=== PATIENT | male | born 1995 | race Caucasian/White ===

== ENCOUNTER 2017-03-07 02:51 | Emergency (ER) | payer OTHER ==
[~2017-03-07] VITALS: Ht 170.2 cm; Wt 65.8 kg
[2017-03-07 02:51] VITALS: O2SAT 96; Ht 170.2 cm; Wt 65.8 kg
[2017-03-07 05:05] LABS: BLOOD UREA NITROGEN 12 mg/dl (7-18); BUN/CREATININE RATIO 15.4 (10-20); CALCIUM 8.2 mg/dl (8.5-10.1); CARBON DIOXIDE 24 mmol/L (21-32); CHLORIDE 110 mmol/L (98-107); CREATININE 0.76 mg/dl (0.60-1.40); GLUCOSE 100 mg/dl (70-99); POTASSIUM 3.9 mmol/L (3.5-5.1); SODIUM 142 mmol/L (136-145)
--- NOTE | 2017-03-07 07:48 | EMERGENCY ROOM VISIT NOTE ---
History Report prepared by Korey: Gemma Villarreal Under the Supervision of: Dr. Natalie Del Angel D.O. First contact with patient: 04:43 Chief Complaint: ALCOHOL OVERDOSE Stated Complaint: ALCOHOL OVERDOSE Nursing Triage Summary: Pt arrived via [facility] from [facility] at [employer] bus stop. Per EMS, pt found asleep on [employer] bus. No sober friends. No vomiting or signs of trauma. 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 The patient presents to the ED by EMS. He was found asleep on a [employer] bus. He denies having any pain. The history is limited due to the patient's intoxication. 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 Review of Systems Limited due to patient's intoxication. Past Medical & Surgical Unobtainable due to intoxication. Family History No pertinent family history stated. Social History Smoking Status: Never Smoker Alcohol Use: occasionally Current/Historical Medications No Active Prescriptions or Reported Meds Allergies Coded Allergies: No Known Allergies (Unverified , 03/07/17) Physical Exam Vital Signs Date Time Temp Pulse Resp B/P (MAP) Pulse Ox O2 Delivery O2 Flow Rate FiO2 03/07/17 10:10 36.6 88 18 133/79 97 03/07/17 09:45 36.6 88 18 133/79 97 Room Air 03/07/17 08:00 65 18 91/51 96 Room Air 03/07/17 06:31 95/56 03/07/17 06:17 75 03/07/17 06:06 76 18 94 03/07/17 06:01 100/57 03/07/17 05:56 68 16 94 03/07/17 05:53 114/75 03/07/17 05:26 85 92 03/07/17 04:56 95 23 98 03/07/17 04:26 72 16 95 03/07/17 04:21 91 19 96 03/07/17 03:51 97 19 97 03/07/17 03:21 79 21 96 03/07/17 03:01 85 03/07/17 02:57 146/98 10/22/17 02:51 36.5 80 14 146/98 96 Room Air 03/07/17 02:51 96 Room Air Physical Exam GENERAL: alert, well appearing, well nourished, no distress, non-toxic EYE EXAM: normal conjunctiva, PERRL and EOM's grossly intact OROPHARYNX: no exudate, no erythema, lips, buccal mucosa, and tongue normal and mucous membranes are moist NECK: supple, no nuchal rigidity, no adenopathy, non-tender LUNGS: Clear to auscultation. Normal chest wall mechanics, no w/r/r HEART: no murmurs, S1 normal and S2 normal ABDOMEN: abdomen soft, non-tender, normo-active bowel sounds, no masses, no rebound or guarding. BACK: Back is symmetrical on inspection and there is no deformity, no midline tenderness, no CVA tenderness. SKIN: no rashes and no bruising UPPER EXTREMITIES: upper extremities are grossly normal. No evidence of trauma , full range of motion, normal pulses. LOWER EXTREMITIES: No pitting edema. No evidence of trauma, full range of motion, normal pulses. NEURO EXAM: Patient is not cooperative for additional testing. Moves all extremities spontaneously. Medical Decision & Procedures Laboratory Results 03/07/17 03:02 Test 03/07/17 03:02 Anion Gap 8.0 mmol/L (3-11) Est Creatinine Clear Calc Drug Dose 143.1 ml/min Estimated GFR () > 150.0 Estimated GFR (Non- 130.4 BUN/Creatinine Ratio 15.4 (10-20) Calcium Level 8.2 mg/dl (8.5-10.1) Ethyl Alcohol mg/dL 329.0 mg/dl (0-3) Laboratory results per my review. ED Course 0451: The patient was evaluated in room C11A. A complete history and physical exam was performed. 0724: I reevaluated the patient. He is sleeping. Vitals are stable. 0847: Patient awake and alert, denies any complaints. Denies any trauma last night. States he will remembers getting on a bus, does not recall how he ended up in the emergency room. Patient now using his phone to try and call for a sober ride. Patient would not be sober until closer to 10:00. Medical Decision Differential diagnosis includes etiologies such as alcohol intoxication, toxicologic, infection, hypoglycemia, electrolyte abnormalities, cardiac sources , intracerebral event, neurologic, as well as others were entertained. Patient well-appearing here, monitored as a precaution. No change in any symptoms, and no history or exam findings to suggest trauma. Vital signs stable , patient tolerating by mouth, emulate with steady gait and well-appearing time of discharge. Low suspicion for any additional to medic injury, or other contributing neuro/cardiac/electrolyte abnormality. Medication Reconcilliation Current Medication List: was personally reviewed by me Blood Pressure Screening Patient's blood pressure: Normal blood pressure Impression Primary Impression: Alcoholic intoxication Scribe Attestation The scribe's documentation has been prepared under my direction and personally reviewed by me in its entirety. I confirm that the note above accurately reflects all work, treatment, procedures, and medical decision making performed by me. Departure Information Dispostion Home / Self-Care Prescriptions No Active Prescriptions or Reported Meds Patient Instructions [facility] Additional Instructions Please drink responsibly and in a safe location, do not drink and drive. If you have any new or concerning symptoms, please return the emergency room. Problem Qualifiers Primary Impression: Alcoholic intoxication Complication of substance-induced condition: uncomplicated Qualified Codes: F10.920 - Alcohol use, unspecified with intoxication, uncomplicated
[2017-03-07 10:10] VITALS: BP 133/79; PULSE 88; TEMP 36.6; O2SAT 97
== END 2017-03-07 10:10 | disposition home or self-care (01) ==
LOC: C.EDC 02:53
DX: F10.920 Alcohol use, unspecified with intoxication, uncomplicated (principal); Y90.8 Blood alcohol level of 240 mg/100 ml or more